=== PATIENT | female | born 1975 | race African-American/Black ===

== ENCOUNTER 2016-11-28 09:10 | Emergency (ER) | payer MEDICAID ==
[~2016-11-28] VITALS: Ht 162.6 cm; Wt 49.9 kg
[2016-11-28] MEDS ORDERED: SODIUM CHLORIDE 0.9% 1,000 ML IV ONE (10:44)
[2016-11-28] MEDS ORDERED: MORPHINE SULFATE 4 MG/ML SYRG IV ONE (10:45)
[2016-11-28] MEDS ORDERED: ONDANSETRON HCL 4 MG/2 ML VIAL IV ONE (10:45)
[2016-11-28 11:25] LABS: DEFINITIVE VIEW TRANSMISSION; Hematocrit 24.9 % (36.0-46.0); Hemoglobin 7.5 g/dL (12.2-16.2); Mean Corpuscular Hemoglobin 20.1 pg (28.0-32.0); Mean Corpuscular Hgb Conc. 30.1 g/dL (32.0-36.0); Mean Corpuscular Volume 66.7 fL (80.0-100.0); Mean Platelet Volume 7.8 fL (7.4-10.4); Platelet Count (auto) 727 10^3/uL (140-450); White Blood Cell 12.4 10^3/uL (4.4-10.8)
[2016-11-28 11:35] LABS: Red Cell Distribution Width 24.1 % (11.6-16.0)
[2016-11-28 11:36] LABS: Metamyelocytes % 0; Myelocytes % 0; Promyelocytes % 0; Reactive Lymphocytes 0
[2016-11-28 11:40] LABS: Partial Thromboplastin Time 26.6 sec (22.64-33.71); Prothrombin Time 10.3 sec (9.37-12.3)
[2016-11-28 11:41] LABS: Albumin 3.6 g/dL (3.4-5.0); BUN/Creatinine Ratio 9.2; Bilirubin, Total 0.2 mg/dL (0.2-1.0); Calcium 8.9 mg/dL (8.5-10.1); Potassium 3.8 mmol/L (3.5-5.1); Total Protein 7.7 g/dL (6.4-8.2)
[2016-11-28 11:59] LABS: Platelet Estimate Increased
[2016-11-28 12:00] LABS: Anisocytosis Slight; Hypochromia Slight; Microcytosis Slight
[2016-11-28 12:03] LABS: Burr Cells FEW; Giant Platelets Few; Ovalocytes FEW; Tear Drop Cells FEW
[2016-11-28 12:30] LABS: Urine Bilirubin Negative (Negative); Urine Blood TRACE /uL (Negative); Urine Color Yellow (Yellow); Urine Glucose Normal (Normal); Urine Ketone Negative (Negative); Urine Nitrite Negative (Negative); Urine RBC 1 /hpf (0 - 4); Urine Squamous Epithelial Cell FEW /hpf (<5); Urine Urobilinogen Normal (Negative)
[2016-11-28] MEDS ORDERED: metroNIDAZOLE 500 MG TAB PO ONE (13:00)
[2016-11-28] MEDS ORDERED: cefTRIAXone 1GM/50ML D5W 50 ML IV ONE (13:00)
[2016-11-28 14:31] VITALS: BP 118/67
== END 2016-11-28 15:05 | disposition home or self-care (01) ==
LOC: EDBD 09:10 → ER 09:18
DX: N73.9 Female pelvic inflammatory disease, unspecified (principal); F17.210 Nicotine dependence, cigarettes, uncomplicated; F12.10 Cannabis abuse, uncomplicated; Z98.890 Other specified postprocedural states
CPT/HCPCS: 36415; 74176; 80053; 81001; 82150; 83605; 83690; 84484; 84702; 85007; 85027; 85049; 85610; 85730; 87040; 96361; 96365; 96375; 99285; J0696; J2270; J2405; J7030

== ENCOUNTER 2016-12-09 22:47 | Emergency (ER) | payer MEDICAID ==
[~2016-12-09] VITALS: Ht 162.6 cm; Wt 49.9 kg
[2016-12-09 23:33] LABS: DEFINITIVE VIEW TRANSMISSION; Hematocrit 28.2 % (36.0-46.0); Hemoglobin 8.3 g/dL (12.2-16.2); Mean Corpuscular Hemoglobin 19.6 pg (28.0-32.0); Mean Corpuscular Hgb Conc. 29.5 g/dL (32.0-36.0); Mean Corpuscular Volume 66.5 fL (80.0-100.0); Mean Platelet Volume 7.3 fL (7.4-10.4); Platelet Count (auto) 681 10^3/uL (140-450); SUSPECT VIEW TRANSMISSION; White Blood Cell 5.8 10^3/uL (4.4-10.8)
[2016-12-09 23:40] LABS: Red Cell Distribution Width 22.5 % (11.6-16.0)
[2016-12-09 23:41] LABS: Metamyelocytes % 0; Myelocytes % 0; Promyelocytes % 0; Reactive Lymphocytes 0
[2016-12-09 23:51] LABS: Reticulocyte Count 1.85 % (0.5-1.5)
[2016-12-09 23:57] LABS: Albumin 3.7 g/dL (3.4-5.0); Calcium 8.4 mg/dL (8.5-10.1); Magnesium 2.2 mg/dL (1.6-2.6); Potassium 3.6 mmol/L (3.5-5.1)
[2016-12-10] LABS: Bilirubin, Total 0.2 mg/dL (0.2-1.0); Total Protein 8.2 g/dL (6.4-8.2)
[2016-12-10 00:17] LABS: Hypersegmented Neutrophils Present
[2016-12-10 00:18] LABS: Anisocytosis Moderate; Hypochromia Marked; Microcytosis Marked; Platelet Estimate Increased
[2016-12-10 00:19] LABS: Burr Cells FEW; Ovalocytes FEW; Schistocytes FEW
[2016-12-10 01:50] LABS: Urine Bilirubin Negative (Negative); Urine Color PINK (Yellow); Urine Glucose Normal (Normal); Urine Mucus FEW (None Seen); Urine Nitrite Negative (Negative); Urine RBC 44 /hpf (0 - 4); Urine Squamous Epithelial Cell FEW /hpf (<5); Urine Urobilinogen Normal (Negative); Urine pH 5.5 (5.0-8.0)
[2016-12-10 01:52] LABS: Urine Blood 1+ /uL (Negative); Urine Ketone 2+ (Negative)
[2016-12-10] MEDS ORDERED: NALBUPHINE HCL 10 MG/1ml INJECTION IV ONE (11:00)
[2016-12-10] MEDS ORDERED: METOCLOPRAMIDE HCL 5MG/ml INJ 2ml VIAL IV ONE (11:00)
[2016-12-10] MEDS ORDERED: GADOPENTETATE DIMEGLUMINE (10MMOL/20 ML) VIAL IV ONE (11:15)
[2016-12-10] MEDS ORDERED: cefTRIAXone 1GM/50ML D5W 50 ML IV ONE (17:15)
[2016-12-10 18:17] VITALS: BP 106/52
== END 2016-12-10 17:53 | disposition home or self-care (01) ==
LOC: ER 22:54
DX: R19.09 Other intra-abdominal and pelvic swelling, mass and lump (principal); N39.0 Urinary tract infection, site not specified; F14.10 Cocaine abuse, uncomplicated; F12.10 Cannabis abuse, uncomplicated; F17.210 Nicotine dependence, cigarettes, uncomplicated; N73.9 Female pelvic inflammatory disease, unspecified; Z98.890 Other specified postprocedural states
CPT/HCPCS: 36415; 72195; 76856; 80053; 81001; 82150; 83690; 83735; 84702; 85007; 85027; 85045; 85049; 96365; 96375; 99285; A9579; G0434; J0696; J2300; J2765; J7060

== ENCOUNTER 2017-07-04 14:51 | Emergency (ER) | payer MEDICAID ==
[~2017-07-04] VITALS: Ht 162.6 cm; Wt 45.4 kg
[2017-07-04 15:03] VITALS: BP 105/79
[2017-07-04 16:03] LABS: Urine Bilirubin Negative (Negative); Urine Blood 2+ /uL (Negative); Urine Color Yellow (Yellow); Urine Glucose Normal (Normal); Urine Ketone Negative (Negative); Urine Nitrite Negative (Negative); Urine RBC 1165 /hpf (0 - 4); Urine Squamous Epithelial Cell FEW /hpf (<5); Urine Urobilinogen Normal (Negative); Urine WBC Clumps PRESENT /hpf (None Seen); Urine pH 7.5 (5.0-8.0)
[2017-07-04 18:22] LABS: CONDITION Y; DEFINITIVE SEE PRINTOUT; SUSPECT SEE PRINTOUT
[2017-07-04 18:23] LABS: Albumin 3.5 g/dL (3.4-5.0); BUN/Creatinine Ratio 10.1; Calcium 9.2 mg/dL (8.5-10.1); Potassium 5.1 mmol/L (3.5-5.1)
[2017-07-04 18:26] LABS: Bilirubin, Total 0.2 mg/dL (0.2-1.0); Total Protein 8.4 g/dL (6.4-8.2)
[2017-07-04 18:32] LABS: Hematocrit 30.3 % (36.0-46.0); Hemoglobin 9.4 g/dL (12.2-16.2); Mean Corpuscular Hemoglobin 22.7 pg (28.0-32.0); Mean Corpuscular Hgb Conc. 31.1 g/dL (32.0-36.0); Mean Corpuscular Volume 72.9 fL (80.0-100.0); Mean Platelet Volume 8.3 fL (7.4-10.4); Platelet Count (auto) 593 10^3/uL (140-450); White Blood Cell 7.7 10^3/uL (4.4-10.8)
[2017-07-04 18:34] LABS: Red Cell Distribution Width 22.7 % (11.6-16.0)
[2017-07-04 18:36] LABS: Metamyelocytes % 0; Myelocytes % 0; Promyelocytes % 0; Reactive Lymphocytes 0
[2017-07-04 18:54] LABS: Platelet Estimate Increased
[2017-07-04 18:55] LABS: Anisocytosis Moderate; Hypochromia Moderate
[2017-07-04 18:56] LABS: Burr Cells FEW; Giant Platelets Few; Ovalocytes FEW
[2017-07-04 18:57] LABS: Stomatocytes Few
== END 2017-07-04 20:20 | disposition left against medical advice (07) ==
LOC: ER 14:51
DX: R11.2 Nausea with vomiting, unspecified (principal); M79.604 Pain in right leg; Z53.21 Procedure and treatment not carried out due to patient leaving prior to being seen by health care provider
CPT/HCPCS: 36415; 80053; 81001; 85007; 85027

== ENCOUNTER 2017-07-29 12:25 | Emergency (ER) | payer MEDICAID ==
[~2017-07-29] VITALS: Ht 162.6 cm; Wt 45.4 kg
[2017-07-29 12:50] VITALS: BP 120/78
[2017-07-29] MEDS ORDERED: cefTRIAXone SOD 1,000 MG VL IM ONE (13:30)
== END 2017-07-29 14:31 | disposition home or self-care (01) ==
LOC: ER 12:25
DX: J02.9 Acute pharyngitis, unspecified (principal); F17.210 Nicotine dependence, cigarettes, uncomplicated
CPT/HCPCS: 96372; 99283; J0696

== ENCOUNTER 2017-11-18 08:34 | Emergency (ER) | payer MEDICAID ==
[~2017-11-18] VITALS: Ht 162.6 cm; Wt 52.2 kg
[2017-11-18 08:45] VITALS: BP 162/96
[2017-11-18 09:26] LABS: Basophils # (auto) 0 uL; Basophils % (auto) 0.4 % (0.0-2.0); Eosinophils # (auto) 0 uL; Eosinophils % (auto) 0.2 % (0.0-7.0); Hematocrit 32.3 % (36.0-46.0); Hemoglobin 10.6 g/dL (12.2-16.2); Lymphocytes # (auto) 0.3 uL; Lymphocytes % (auto) 6.1 % (10.0-50.0); Mean Corpuscular Hemoglobin 31.8 pg (28.0-32.0); Mean Corpuscular Hgb Conc. 32.9 g/dL (32.0-36.0); Mean Corpuscular Volume 96.6 fL (80.0-100.0); Monocytes # (auto) 0.7 uL; Neutrophils # (auto) 4.4 uL; Neutrophils % (auto) 80.3 % (37.0-80.0); Nucleated Red Blood Cells % 0.2 %; Platelet Count (auto) 208 10^3/uL (140-450); Red Blood Cells 3.34 10^6/uL (4.0-5.20); Red Cell Distribution Width 19.7 % (11.8-14.3); White Blood Cell 5.5 10^3/uL (4.4-10.8)
[2017-11-18 09:37] LABS: Albumin 3.4 g/dL (3.4-5.0); BUN/Creatinine Ratio 8.3; Calcium 9.5 mg/dL (8.5-10.1); Potassium 3.7 mmol/L (3.5-5.1)
[2017-11-18 09:57] LABS: Total Protein 8.5 g/dL (6.4-8.2)
[2017-11-18 12:59] LABS: Bilirubin, Total 0.2 mg/dL (0.2-1.0)
== END 2017-11-18 17:17 | disposition left against medical advice (07) ==
LOC: ER 08:34 → EDBD 08:34 → ER 17:17
DX: R10.31 Right lower quadrant pain (principal); Z53.21 Procedure and treatment not carried out due to patient leaving prior to being seen by health care provider
CPT/HCPCS: 36415; 80053; 84702; 85025

== ENCOUNTER 2018-02-13 13:43 | Observation (INO) | payer MEDICAID ==
[~2018-02-13] VITALS: Ht 170.2 cm; Wt 43.1 kg
[2018-02-13 14:53] LABS: White Blood Cell 2.6 10^3/uL (4.4-10.8)
[2018-02-13 14:55] LABS: Hematocrit 31.6 % (36.0-46.0); Hemoglobin 10.5 g/dL (12.2-16.2); Mean Corpuscular Hemoglobin 34.4 pg (28.0-32.0); Mean Corpuscular Hgb Conc. 33.2 g/dL (32.0-36.0); Mean Corpuscular Volume 103.6 fL (80.0-100.0); Platelet Count (auto) 216 10^3/uL (140-450); Red Blood Cells 3.05 10^6/uL (4.0-5.20)
[2018-02-13 15:19] LABS: BUN/Creatinine Ratio 10.5; Bilirubin, Total 0.3 mg/dL (0.2-1.0); Calcium 8.7 mg/dL (8.5-10.1); Potassium 3.9 mmol/L (3.5-5.1); Total Protein 7.7 g/dL (6.4-8.2)
[2018-02-13 15:22] LABS: Red Cell Distribution Width 25.1 % (11.8-14.3)
[2018-02-13 15:25] LABS: Band Neutrophils % (manual) 0; Basophils % (manual) 0 (0.0-2.0); Blast Cells 0; Eosinophils % (manual) 0 (0-7); Metamyelocytes % 0; Myelocytes % 0; Promyelocytes % 0; Reactive Lymphocytes 0
[2018-02-13] MEDS ORDERED: SODIUM CHLORIDE 0.9% 1,000 ML IVB ONE (15:39)
[2018-02-13] MEDS ORDERED: ONDANSETRON HCL 4 MG/2 ML VIAL IV ONE ×2 (15:45→19:30)
[2018-02-13 15:56] LABS: Lymphocytes % (manual) 31 (10.0-50.0); Monocytes % (manual) 19 (0-12)
[2018-02-13] MEDS ORDERED: MORPHINE SULFATE 4 MG/ML SYR/VIAL IV ONE ×2 (16:00→19:30)
[2018-02-13 16:31] LABS: Amylase 56 U/L (25-115); Lipase 48 U/L (73-393)
[2018-02-13 18:28] LABS: Urine Bacteria NONE SEEN /hpf (None Seen); Urine Blood Negative /uL (Negative); Urine Specific Gravity 1.024 (1.001-1.035); Urine WBC 5 /hpf (0 - 5)
[2018-02-13 21:00] VITALS: BP 116/70
== END 2018-02-13 21:09 | disposition home or self-care (01) | DRG 463 ==
LOC: ER 13:43 → EDUNIT# 13:43 → EDBD 13:43 → OVERFLOW 15:42 → ER 21:08
PROVIDERS: ADMIT Family Medicine; ATTEND Family Medicine
DX: N30.00 Acute cystitis without hematuria (principal); D64.9 Anemia, unspecified; F17.210 Nicotine dependence, cigarettes, uncomplicated; Z85.43 Personal history of malignant neoplasm of ovary; Z92.21 Personal history of antineoplastic chemotherapy
CPT/HCPCS: 36415; 71045; 74176; 80053; 81001; 82150; 83690; 85007; 85027; 93005; 96374; 96375; 96376; 99285; G0378; J2270; J2405

== ENCOUNTER 2020-08-27 19:33 | Emergency (ER) | payer MEDICARE, OTHER ==
[~2020-08-27] VITALS: Ht 160 cm; Wt 45.4 kg
[2020-08-27] MEDS ORDERED: MORPHINE SULFATE 4 MG/ML SYR/VIAL IV ONE (23:00)
[2020-08-27] MEDS ORDERED: ONDANSETRON HCL 4 MG/2 ML VIAL IV ONE (23:00)
[2020-08-27 23:27] LABS: Hemoglobin 10.3 g/dL (12.2-16.2); Monocytes # (auto) 0.4 10 ^3/uL (0-1.3); Neutrophils # (auto) 7.2 10 ^3/uL (1.6-8.6)
[2020-08-27 23:28] LABS: Basophils # (auto) 0.1 10 ^3/uL (0-0.2); Basophils % (auto) 0.6 % (0.0-2.0); Eosinophils # (auto) 0.1 10 ^3/uL (0-0.8); Eosinophils % (auto) 0.6 % (0.0-7.0); Mean Corpuscular Hemoglobin 29.7 pg (28.0-32.0); Mean Corpuscular Hgb Conc. 33.2 g/dL (32.0-36.0); Mean Corpuscular Volume 89.5 fL (80.0-100.0); Monocytes % (auto) 5.1 % (0.0-12.0); Neutrophils % (auto) 82.7 % (37.0-80.0); Nucleated Red Blood Cells % 0.1 %; Red Blood Cells 3.47 10^6/uL (4.0-5.20); White Blood Cell 8.7 10^3/uL (4.4-10.8)
[2020-08-27 23:34] LABS: Red Cell Distribution Width 22.4 % (11.8-14.3)
[2020-08-27 23:36] LABS: Platelet Count (auto) 1136 10^3/uL (140-450)
[2020-08-27 23:46] LABS: Albumin 2.6 g/dL (3.4-5.0); Potassium 4.7 mmol/L (3.5-5.1)
[2020-08-27 23:47] LABS: BUN/Creatinine Ratio 12.9
[2020-08-27 23:50] LABS: Bilirubin, Total 0.3 mg/dL (0.2-1.0); Total Protein 8.5 g/dL (6.4-8.2)
[2020-08-28 00:42] VITALS: BP 119/72
== END 2020-08-28 01:58 | disposition home or self-care (01) ==
LOC: ER 19:33 → EDBD 19:33 → ER 08-28 01:58
DX: R59.1 Generalized enlarged lymph nodes (principal); F17.210 Nicotine dependence, cigarettes, uncomplicated
CPT/HCPCS: 36415; 74176; 80053; 85025; 96374; 96375; 99284; J2270; J2405